=== PATIENT | male | born 1950 | race Two or more races ===

== ENCOUNTER 2019-11-26 08:11 | Outpatient (CLI) | payer OTHER | END 2019-11-26 08:12 | disposition home or self-care (01) | LOC: RX STUDY 08:11 | PROVIDERS: ATTEND Internal Medicine Gastroenterology | DX: R13.19 Other dysphagia (principal) ==

== ENCOUNTER 2020-01-29 10:20 | Outpatient (CLI) | payer OTHER | END 2020-01-29 14:11 | disposition home or self-care (01) | LOC: OFIC 805 10:20 | PROVIDERS: ATTEND Otolaryngology | DX: H74.8X3 Other specified disorders of middle ear and mastoid, bilateral (principal); H90.3 Sensorineural hearing loss, bilateral ==